=== PATIENT | female | born 1950 | race Caucasian/White ===

== ENCOUNTER 2016-11-29 11:47 | Day surgery (SDC) | payer OTHER ==
[~2016-11-29] VITALS: Ht 152.4 cm; Wt 51.0 kg
[~2016-11-29 11:47] MED LIST: ALBU6.7H INH; BACI1CAP6 PO; CALC-51 PO; DENO60DI SQ; IMI25 PO; KLO2T PO; MAGN250T29 PO; METO10TA3 PO; MOME13HF2 IH; MONT10TA20 PO; MULT-1018 PO; PANT40TA3 PO; SUMA20SP2 NS; Sodium Chloride LOK Flush 10 mL Syringe IV PRN; TIOT18CA3 IH; VITAMIN E PO; fentaNYL-PF 50 mCg/mL 2 mL Inj IVPUSH PRN
[2016-11-29 12:12] VITALS: BP 128/76; PULSE 92; RESP 16; O2SAT 96
[2016-11-29] MEDS: 0.9% Sodium Chloride 1,000 ML IV PRN ×2 (13:06→14:17)
[2016-11-29 14:33] VITALS: BP 147/76; PULSE 79; RESP 16; O2SAT 97
[2016-11-29 14:46] VITALS: BP 145/66; PULSE 78; RESP 16; O2SAT 94
--- NOTE | 2016-11-29 14:59 | ENDO ---
[address] [address] ENDOSCOPY PROCEDURE PATIENT: OPAL LEUNG : 1950 MR#: [id number] ADMIT: 11/29/2016 JOB ID: [id number] DATE: 11/29/2016 PRIMARY PROVIDER: Jose Gottlieb MD PROCEDURE: A colonoscopy with hot snare polypectomy and hot forceps polypectomy. INDICATIONS: A 65-year-old female with abnormal imaging. There was abnormality in the distal transverse proximal descending at CAT scan. EQUIPMENT: PCF H 180 AL and a GIF H 180 J. SEDATION: 1. 5 mg Versed. 2. 100 mcg fentanyl. COMPLICATIONS: None identified. BOWEL PREPARATION: Fair, adequate examination. PROCEDURAL INFORMATION: After the risks and benefits were explained, written and verbal informed consent was obtained. The patient was brought into the endoscopy suite and placed into the left lateral decubitus position. Sedation was achieved as above. A digital rectal examination accomplished. No significant pathology appreciated. The pediatric colonoscope was introduced into the rectum and advanced under direct visualization to approximately 20-23 cm. The patient had an extremely tortuous, difficult rectosigmoid region and did not tolerate attempts at advancing the scope beyond this depth. I swapped this out for the GIF H 180 J scope and with difficulty we were able to eventually advance all the way to cecum as identified by a sand/fiber covered appendiceal orifice and a normal-appearing ileocecal valve. The scope was slowly withdrawn to carefully examine the mucosa for any defects or lesions. Multiple direct views were made through the dentate line. The colon was decompressed. The scope removed from the patient who tolerated the procedure reasonably well. A 22 modifier was requested during this procedure as it was extremely difficult in terms of navigation. We additionally had some mild post polypectomy bleeding. Scope time was approximately 59 minutes as a consequence. FINDINGS: Diverticulosis was seen in the left colon. Very difficult navigation through the sigmoid as described above. I did not appreciate any significant colonic abnormality to correlate with the CT scan report. We did remove a polyp from the ascending colon which was perhaps about 5 mm. Hot snare was utilized. Some of the polyp was left behind and we attempted to remove this with hot forceps. Subsequently there was some mild bleeding and we provided sufficient hemostasis with application of electrocautery through the tip of the forceps. At the rectosigmoid junction, there was another approximately 5 mm polyp removed with hot snare. No other significant pathology throughout. ENDOSCOPIC DIAGNOSES: 1. Diverticulosis. 2. Very difficult navigation as above. 3. Colon polyps. RECOMMENDATIONS: 1. Await histopathology. 2. Repeat colon polyp surveillance/colon cancer screening in approximately five years' time. Based on the degree of difficulty, it may be prudent to consider virtual colonography at that time.
--- NOTE | 2016-12-01 15:25 | PATH ---
SURGICAL PATHOLOGY Attending Physician:Michael Rushing CASE STATUS: Signed Out PATIENT NAME: OPAL LEUNG PID: [id number] : 1950 DATE COLLECTED:11/29/2016 00:00 SPECIMEN: 1: Colon, Biopsy 2: Colon, Biopsy CLINICAL HISTORY: A: ASCENDING COLON POLYP B: RECTO-SIGMOID POLYP FINAL DIAGNOSIS: 1.ASCENDING COLON POLYP: TUBULAR ADENOMA. 2.RECTOSIGMOID POLYP: TUBULAR ADENOMA. ICD10 CODE D12.2 D12.7 GROSS DESCRIPTION: The specimen is received in two formalin filled containers labeled with the patient's name. 1). The specimen is sublabeled "ascending colon polyp" and consists of 2 portions of tissue and possible debris which aggregate to 0.3 x 0.3 x 0.3 CM. The specimen is entirely submitted in cassette 1A. 2). The specimen is sublabeled "recto sigmoid polyp" and consists of a 0.4 x 0.4 x 0.3 CM portion of tissue which is entirely submitted in cassette 2A. 11/30/2016 [facility] MICRO DESCRIPTION: See diagnosis. ICD-9 CODES: CPT CODES: 1: 54708 2: 30792 Electronically Signed Out Sandra Obrien MD [facility] Pathology [facility] [place] [address] Technical component performed at [facility] [address], [place], [address]
== END 2016-11-29 23:59 | disposition home or self-care (01) ==
LOC: END 11:47
PROVIDERS: ATTEND Internal Medicine Gastroenterology
DX: R93.8 Abnormal findings on diagnostic imaging of other specified body structures (principal); D12.2 Benign neoplasm of ascending colon; D12.5 Benign neoplasm of sigmoid colon; K57.30 Diverticulosis of large intestine without perforation or abscess without bleeding; E78.5 Hyperlipidemia, unspecified; K21.9 Gastro-esophageal reflux disease without esophagitis; G47.33 Obstructive sleep apnea (adult) (pediatric); J44.9 Chronic obstructive pulmonary disease, unspecified; Z87.891 Personal history of nicotine dependence; Z85.01 Personal history of malignant neoplasm of esophagus
CPT/HCPCS: 45384; 45385; 99153; G0500; J2250; J7030